=== PATIENT | male | born 1955 | race Caucasian/White ===

== ENCOUNTER → 2024-02-07 | Outpatient (CLI) | payer MEDICARE ==
[2024-02-07 17:26] LABS: BASOPHIL % 0.4 % (0.0-0.2); EOSINOPHIL % 0.9 % (0.0-5.0); HEMATOCRIT(ML) 29.4 % (37.0-53.0); HEMOGLOBIN 9.3 g/dL (13.9-16.3); LYMPHOCYTES # 0.75 10^3/uL1 (1.0-4.8); LYMPHOCYTES % 16.7 % (24.0-44.0); MEAN CORP HGB 30.1 pg (26-34); MEAN CORP HGB CONCENTRATION 31.6 g/dL (33-36.5); MEAN CORP VOLUME 95.1 fL (78-100); MONOCYTES # 0.4 10^3/uL (0.3-0.8); MONOCYTES % 9.8 % (5.0-12.0); NEUTROPHIL # 3.2 10^3/uL (1.8-7.7); NEUTROPHILS % 71.1 % (41.0-85.0); PLATELET COUNT 185 10^3/uL (150-400); RED BLOOD CELL 3.09 10^6/uL (4.50-5.90); RED CELL DISTRIBUTION WIDTH 13.4 % (11.5-14.5); WHITE BLOOD CELL 4.5 10^3/uL (4.5-11.0)
[2024-02-07 17:35] LABS: ALBUMIN(ML) 1.2 g/dL (3.4-5.0); ALBUMIN/GLOBULIN RATIO 0.363; ANION GAP 10.9; CARBON DIOXIDE 19.2 mmol/L (20.0-32); EST GFR, NON-AA 74.3 (>/=60); POTASSIUM 3.1 mmol/L (3.6-5.2)
[2024-02-07 17:36] LABS: +ADD MANUAL DIFF(NO CHRG) NO
[2024-02-07 18:46] LABS: BILIRUBIN,URINE NEGATIVE (NEGATIVE); LEUKOCYTE ESTERASE ,URINE NEGATIVE (NEGATIVE); NITRATE,URINE NEGATIVE (NEGATIVE); PH,URINE 5.5 (4.5-8.0); UROBILINOGEN,URINE 0.2 E.U./dL (0.2)
[2024-02-07 18:50] LABS: APPEARANCE,URINE CLEAR; UA COLOR AMBER
== END | disposition home or self-care (01) ==
LOC: NPLAB 16:59
PROVIDERS: ATTEND Internal Medicine
DX: I25.10 Atherosclerotic heart disease of native coronary artery without angina pectoris (principal); E78.5 Hyperlipidemia, unspecified; E87.1 Hypo-osmolality and hyponatremia; N39.0 Urinary tract infection, site not specified
CPT/HCPCS: 36415; 80053; 81003; 85025